=== PATIENT | male | born 1975 | race Caucasian/White ===

== ENCOUNTER 2023-08-19 08:08 | Emergency (ER) | payer SELFPAY ==
[2023-08-19] MEDS ORDERED: Thiamine 100 MG Tab PO ONE (08:27)
[2023-08-19] MEDS ORDERED: Folic Acid 1 MG Tab PO ONE (08:28)
[2023-08-19] MEDS ORDERED: Multivitamins with Iron/Calcium/Folic Acid/Minerals Tab PO ONE (08:28)
[2023-08-19 08:52] LABS: BASE EXCESS VENOUS 1.4 mm/L; BICARBONATE,VENOUS 26.4 mmol/L; CARBOXYHEMOGLOBIN 2.6 % (0.0-1.6); METHEMOGLOBIN 0.8 %; O2 SATURATION VENOUS 66.2; OXYHEMOGLOBIN 63.9 %; PCO2 VENOUS 45.1 mm/Hg; PH,VENOUS 7.385 (7.350-7.450); PO2 VENOUS 42.3 mm/Hg; TOTAL HEMOGLOBIN 15.2 g/dL (13.5-18.0)
[2023-08-19 08:53] LABS: BASOPHILS ABSOLUTE AUTO 0.06 K/uL (0.00-0.10); BASOPHILS PERCENT AUTO 0.8 % (0.1-1.3); EOSINOPHILS ABSOLUTE AUTO 0.24 K/uL (0.00-0.40); EOSINOPHILS PERCENT AUTO 3.4 % (0.0-5.4); HEMOGLOBIN 14.5 g/dL (12.9-16.9); IMMATURE GRAN ABSOLUTE AUTO 0.03 K/uL (0.00-0.23); IMMATURE GRAN PERCENT AUTO 0.4 % (0.0-0.7); LYMPHOCYTES ABSOLUTE AUTO 1.16 K/uL (0.8-3.3); LYMPHOCYTES PERCENT AUTO 16.3 % (11.4-47.7); MEAN CORPUSCULAR HGB CONC 34.5 g/dL (31.6-35.5); MEAN CORPUSCULAR VOLUME 92.7 fL (81.4-99.0); MONOCYTES ABSOLUTE AUTO 0.52 K/uL (0.20-0.90); MONOCYTES PERCENT AUTO 7.3 % (3.3-12.6); NEUTROPHILS ABSOLUTE AUTO 5.11 K/uL (1.0-7.6); NEUTROPHILS PERCENT AUTO 71.8 % (40.0-78.1); PLATELET COUNT,PLT 98 K/uL (130-375); RED BLOOD CELL COUNT 4.53 M/uL (4.14-5.76); WHITE BLOOD CELL COUNT,WBC 7.1 K/uL (3.2-11.0)
[2023-08-19] MEDS: MVI, Adult with Vitamin K 10 ML, Thiamine 200 MG, Zinc/Copper/Manganese/Selenium 1 ML i... IV ONE (09:03)
[2023-08-19] MEDS: Sodium Chloride 0.9% 10 ML Syringe FLUSH PRN ×2 (09:03→12:18)
[2023-08-19 09:20] LABS: A/G RATIO 0.5 (1.2-2.2); ALANINE AMINOTRANSFERASE,ALT 61 U/L (12-78); ALBUMIN 3.3 g/dL (3.4-5.0); ALKALINE PHOSPHATASE 145 U/L (46-116); ASPARTATE AMNIOTRANSFERASE,AST 120 U/L (15-37); BILIRUBIN TOTAL 0.6 mg/dL (0.2-1.0); BLOOD UREA NITROGEN,BUN 3 mg/dL (7-18); CALCIUM 7.6 mg/dL (8.5-10.1); CARBON DIOXIDE,CO2 28 mmol/L (21-32); CHLORIDE,CL 96 mmol/L (100-108); CREATININE 0.8 mg/dL (0.8-1.3); EST CRCL DRUG DOSING (CG) 132.72 mL/min; ESTIMATED GFR 110 mL/min (>60); GLUCOSE RANDOM 106 mg/dL (74-106); POTASSIUM,K 3.8 mmol/L (3.6-5.2); PROTEIN TOTAL,TP 9.6 g/dL (6.4-8.2); SODIUM,NA 132 mmol/L (140-148)
[2023-08-19 09:30] LABS: ANION GAP 11.8 mmol/L (5.0-14.0)
[2023-08-19] MEDS: Calcium Carbonate 500 MG Tab.Chew PO ONE (11:10)
[2023-08-19] MEDS: Iopamidol 612 MG/ML 100 ML Bottle IV SCH (12:17)
[2023-08-19] MEDS: Sodium Chloride 0.9% 100 ML IV SCH (12:17)
[2023-08-19] MEDS: Prochlorperazine 10 MG/2 ML SDV IVPUSH ONE (13:15)
[2023-08-19] MEDS ORDERED: Ondansetron 4 MG/2 ML SDV IVPUSH ONE (14:49)
[2023-08-19] MEDS: LORazepam 0.5 MG Tab PO ONE (14:57)
[2023-08-19] MEDS: Ondansetron 4 MG Tab.DIS PO ONE (14:57)
== END 2023-08-19 16:04 ==
LOC: JP.ED 08:08
DX: E86.0 Dehydration (principal); E87.1 Hypo-osmolality and hyponatremia; E83.51 Hypocalcemia; F10.920 Alcohol use, unspecified with intoxication, uncomplicated; I10 Essential (primary) hypertension; F17.210 Nicotine dependence, cigarettes, uncomplicated
CPT/HCPCS: 36415; 74177; 80053; 80307; 82803; 83605; 83690; 85025; 96365; 96366; 96375; 99285; A9270; J0780; J3411; J3490; J7120; Q0162; Q9967